=== PATIENT | male | born 1980 | race American Indian/Alaskan Native ===

== ENCOUNTER 2021-07-09 13:24 | Emergency (ER) | payer OTHER ==
[2021-07-09 13:57] LABS: CHLORIDE,CL 97 mEq/L (98-106); SODIUM,NA 135 mEq/L (136-145)
--- NOTE | 2021-07-09 14:22 | EDM.PDOC ---
ED HPI GENERAL MEDICAL PROBLEM - General Chief Complaint: General Stated Complaint: COVID+ Doesn't Feel Well Time Seen by Provider: 07/09/21 13:55 Source of Information: Reports: Patient History Limitations: Reports: No Limitations - History of Present Illness INITIAL COMMENTS - FREE TEXT/NARRATIVE: Tyrone is a 40 yo male who presents to the ED with concerns of not feeling well with Covid. He was recently diagnosed and states symptoms started roughly 8 days ago. States he doesn't feel short of breath. Admits he feels weak, tired, having body aches, coughing. States today the symptoms are the worst they have been. States he has been taking Tylenol for fevers, which has helped some. Has history of diabetes and hasn't really been able to eat much. Is drinking fluids and try ing to stay hydrated. "all over" Pain Score (Numeric/FACES): 8 - Related Data Allergies Allergy/AdvReac Type Severity Reaction Status Date / Time No Known Allergies Allergy Verified 07/09/21 13:25 Home Meds: Home Meds glipiZIDE [Glucotrol] 10 mg PO DAILY 07/06/21 [History] metFORMIN [Glucophage] 1,000 mg PO BID 07/06/21 [History] lisinopriL [Lisinopril] 5 mg PO DAILY 07/09/21 [History] Past Medical History Cardiovascular History: Reports: High Cholesterol, Hypertension Endocrine/Metabolic History: Reports: Diabetes, Type I Social & Family History - Family History Family Medical History: No Pertinent Family History - Tobacco Use Tobacco Use Status *Q: Never Tobacco User Second Hand Smoke Exposure: No - Caffeine Use Caffeine Use: Reports: None - Recreational Drug Use Recreational Drug Use: No ED ROS GENERAL - Review of Systems Review Of Systems: See Below Constitutional: Reports: Fever, Chills, Weakness, Fatigue, Decreased Appetite HEENT: Reports: Sinus Problem (congestion) Respiratory: Reports: Cough. Denies: Shortness of Breath, Wheezing Cardiovascular: Reports: No Symptoms GI/Abdominal: Reports: No Symptoms Musculoskeletal: Reports: Back Pain (low), Muscle Pain, Muscle Stiffness Skin: Reports: No Symptoms Neurological: Reports: No Symptoms ED EXAM, GENERAL - Physical Exam Exam: See Below Exam Limited By: No Limitations General Appearance: Alert, No Apparent Distress Ears: Normal External Exam, Hearing Grossly Normal Throat/Mouth: Normal Voice, No Airway Compromise Head: Atraumatic, Normocephalic Neck: Normal Inspection, Supple. No: Lymphadenopathy (L), Lymphadenopathy (R) Respiratory/Chest: No Respiratory Distress, Lungs Clear, Normal Breath Sounds, No Accessory Muscle Use Cardiovascular: Regular Rate, Rhythm, No Edema, No Murmur GI/Abdominal: Normal Bowel Sounds, Soft, Non-Tender, No Organomegaly, No Distention, No Mass Back Exam: No: CVA Tenderness (L), CVA Tenderness (R) Extremities: Normal Inspection, No Pedal Edema Neurological: Alert, Oriented, Normal Cognition, No Motor/Sensory Deficits Psychiatric: Normal Affect, Normal Mood Skin Exam: Warm, Dry, Intact, Normal Color, No Rash Course - Vital Signs Last Recorded V/S: Last Vital Signs Temp 98.7 F 07/09/21 13:30 Pulse 73 07/09/21 13:30 Resp 18 07/09/21 13:30 BP 133/89 07/09/21 13:30 Pulse Ox 99 07/09/21 13:30 - Orders/Labs/Meds Orders: Active Orders 24 hr Category Date Time Status Chest 1V Frontal [CR] Stat Exams 07/09/21 13:30 Taken Labs: Laboratory Tests 07/09/21 07/09/21 Range/Units 13:42 13:42 WBC 10.1 (4.0-11.0) 10^3/uL RBC 5.17 (4.50-6.00) x10^6/uL Hgb 14.7 (14.0-18.0) g/dL Hct 42.3 (42.0-52.0) % MCV 81.8 L (83.0-97.0) fL MCH 28.4 (27.0-32.0) pg MCHC 34.8 (32.0-36.0) g/dL RDW Coeff of Susie 12.3 (11.0-15.0) % Plt Count 238 (150-400) 10^3/uL Immature Gran % (Auto) 0.3 (0.0-4.9) % Neut % (Auto) 82.0 H (41-71) % Lymph % (Auto) 12.1 L (24-44) % [place] % (Auto) 5.4 (0-10) % Eos % (Auto) 0.0 (0-6) % Baso % (Auto) 0.2 (0-1) % Neut # (Auto) 8.24 H (1.80-8.00) x10^3/uL Lymph # (Auto) 1.22 (0.60-5.00) 10^3/uL [place] # (Auto) 0.54 (0.00-1.50) 10^3/uL Eos # (Auto) 0.00 (0.00-1.50) 10^3/uL Baso # (Auto) 0.02 (0.00-0.50) 10^3/uL Immature Gran # (Auto) 0.03 (0.00-0.49) 10^3/uL Sodium 135 L (136-145) mEq/L Potassium 3.6 (3.5-5.0) mEq/L Chloride 97 L (98-106) mEq/L Carbon Dioxide 25 (21-32) mmol/L BUN 11 (7-18) mg/dL Creatinine 0.9 (0.7-1.3) mg/dL Est Cr Clr Drug Dosing 117.37 mL/min Estimated GFR (MDRD) > 60 (>=60) mL/min Glucose 217 H (75-99) mg/dL Calcium 8.8 (8.4-10.1) mg/dL Magnesium 1.9 (1.8-2.4) mg/dL Total Bilirubin 0.6 (0.0-1.0) mg/dL AST 22 (15-37) U/L ALT 29 (12-78) U/L Alkaline Phosphatase 63 (46-116) U/L C-Reactive Protein 10.4 H (0.2-0.8) mg/dL Total Protein 7.6 (6.4-8.2) g/dL Albumin 3.2 L (3.4-5.0) g/dL Departure - Departure Time of Disposition: 14:18 Disposition: Home, Self-Care 01 Clinical Impression: COVID-19 - Discharge Information Instructions: 10 Things You Can Do to Manage Your COVID-19 Symptoms at Home - [facility] (03/22/2021) Additional Instructions: 1) Laboratory work today was fairly unremarkable. CRP level was slightly elevated, as expected. 2) Chest x-ray was negative for any infiltrates, pending final report from radiologist. 3) discussed monoclonal antibodies, which patient deferred today, would like to treat with over the counter therapies Vitamin C - 500mg two to three times a day Vitamin D - 2000iu daily Zinc - 220mg daily Melatonin for sleep 4) Encourage to push fluids and rest 5) Oxygen saturation was 98-99% today, if would develop shortness of breath, recommend reevaluation 6) May continue with Tylenol and or ibuprofen for fevers/body aches, as directed on bottles. Sepsis Event Note (ED) - Evaluation Sepsis Screening Result: No Definite Risk - Focused Exam Vital Signs: Vital Signs Temp Pulse Resp BP Pulse Ox 07/09/21 13:30 98.7 F 73 18 133/89 99 - Problem List & Annotations (1) COVID-19 SNOMED Code(s): 048579373 Code(s): U07.1 - COVID-19 Status: Acute - My Orders Last 24 Hours: My Active Orders 07/09/21 13:30 Chest 1V Frontal [CR] Stat - Assessment/Plan Last 24 Hours: My Active Orders 07/09/21 13:30 Chest 1V Frontal [CR] Stat Plan: Discussed overall unremarkable lab and chest x-ray today. Discussed monoclonal antibodies with patient d/t history of diabetes and hypertension. Reviewed fact sheet with patient. Patient declined at this time. Wished to proceed with home cares and over the counter therapies. Will discharge home at this time. Patient verbalized understanding and discharged in satisfactory condition.
== END 2021-07-09 14:38 | disposition home or self-care (01) ==
LOC: CC.ED 13:24
DX: U07.1 COVID-19 (principal); E78.00 Pure hypercholesterolemia, unspecified; I10 Essential (primary) hypertension; E10.9 Type 1 diabetes mellitus without complications; Z79.899 Other long term (current) drug therapy
CPT/HCPCS: 36415; 71045; 80053; 83735; 85025; 86140; 99285-25